=== PATIENT | female | born 1985 | race Caucasian/White ===

== ENCOUNTER 2016-11-25 22:42 | Emergency (ER) | payer OTHER ==
[~2016-11-25 22:42] MED LIST: IBUP600T26 PO
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
[2016-11-25] MEDS ORDERED: CALNTAB (23:30)
== END 2016-11-26 00:40 | disposition home or self-care (01) ==
LOC: HOBED 22:42
DX: R10.30 Lower abdominal pain, unspecified (principal); O26.92 Pregnancy related conditions, unspecified, second trimester; Z3A.16 16 weeks gestation of pregnancy
CPT/HCPCS: 76815